=== PATIENT | female | born 1955 | race Caucasian/White ===

== ENCOUNTER → 2020-12-28 | Day surgery (SDC) | payer OTHER ==
[~2020-12-28] VITALS: Ht 165.1 cm; Wt 188.0 kg
[~2020-12-28] MED LIST: CEFD300C PO; LEVO5TAB29 PO; LEVO75TA67 PO; LIDOCAINE 1%/EPI 1:100,000 20 ML VIAL. INJ ONE
[2020-12-28 13:04] VITALS: BP 139/77
--- NOTE | 2020-12-28 13:53 | PDOC4 ---
Operative Note Operative Note Date: 2020-12-28 at 1351 Preoperative diagnosis: Left abdominal wall mass Postoperative diagnosis: Same Procedure: Excision of mass Surgeon: Austen Specimen: Abdominal wall mass Dictation: Patient is 65-year-old female developed inflamed mass in her left abdomen close to where she had previously had a sebaceous cyst excised. Procedure of excision was explained to the patient detail risk benefits were also discussed including bleeding infection alternatives to this procedure also discussed with the patient who seemed to understand and gave a verbal written consent to have procedure performed. Patient was taken to the minors room placed in the supine position area of interest was prepped and draped usual sterile fashion using ChloraPrep. Area around the mass was injected with 1% lidocaine with epinephrine elliptical incision was made with 15 blade scalpel is carried down through the subcutaneous tissue excising the mass circumferentially. Margins of 2 cm. Mass was sent for pathology the wound was closed in a single layer 4-0 subcuticular Monocryl Mastisol Steri-Strips and island dressing was applied. Patient tolerated procedure well was discharged home in stable condition all sponge instrument needle counts listed as correct estimated blood loss 5 mL ZACHARY FELIPE MD Dec 28, 2020 13:53
--- NOTE | 2020-12-28 13:55 | DISCH ---
DISCHARGE INSTRUCTIONS Condition on Discharge Condition on Discharge: Stable Activity After Discharge Activity Instructions for Disc: Activity as tolerated Diet after Discharge Diet after Discharge: Regular Wound Incision Care Other wound/incision instructi: May shower in 24 hours Contacting the DRNolberto after DC Call your doctor for: If your condition worsens Follow-Up Follow up with: Dr. Felipe in 2 weeks ZACHARY FELIPE MD Dec 28, 2020 13:55
--- NOTE | 2020-12-30 17:23 | PATHOLOGY ---
[facility] Accession Number: [id number] . 01 Material submitted: . abdomen - LEFT ABDOMEN MASS. Modifiers: left . 01 Clinical history: . LEFT ABDOMEN MASS EXC. CYST LEFT ABDOMEN . 02 Diagnosis: Skin and subcutaneous tissue, left abdomen mass excision: - Epidermal inclusion cyst, focally ruptured, with acute and chronic inflammation and focal foreign body giant cell reaction. (JPM:[facility]; 12/30/2020) [facility] 12/30/2020 1544 Local . 02 Comment: There is no evidence of malignancy. (JP:[facility]; 12/30/2020) . 02 Electronically signed: . Jaciel Ross MD, Pathologist NPI- [id number] . 01 Gross description: . The specimen is received in formalin, labeled "Court Kaden, left abdomen mass". Received is an ellipse of pale moscoso, grossly unremarkable skin with attached underlying soft tissue measuring 4.3 x 1.3 x 1.4 cm in greatest dimensions. Sectioning reveals a unilocular cystic structure measuring 1.1 cm filled with pale-moscoso friable material. The specimen is submitted representatively in cassette A1. ([facility]; 12/29/2020) QA/QAC 12/29/2020 1804 Local . 02 Pathologist provided ICD-10: L72.0, L98.9 . 02 CPT . 135580 Specimen Comment: A courtesy copy of this report has been sent to [phone], [phone] Specimen Comment: [id number] Specimen Comment: Report sent to / DR HERRERA Performed at: [address], [place], [place] [id number] MD Redd Dunaway MD Phone: [phone] Performed at: 02 [facility] [address] [place], [place] [id number] MD Jaciel Ross MD Phone: [phone]
== END | disposition home or self-care (01) ==
LOC: SURG 12:37
PROVIDERS: ATTEND Surgery
DX: L72.0 Epidermal cyst (principal); L98.9 Disorder of the skin and subcutaneous tissue, unspecified; M19.90 Unspecified osteoarthritis, unspecified site; Z87.891 Personal history of nicotine dependence; Z90.49 Acquired absence of other specified parts of digestive tract; Z98.890 Other specified postprocedural states; Z79.899 Other long term (current) drug therapy
CPT/HCPCS: 11404; 88304; J3490

== ENCOUNTER → 2021-02-15 | Outpatient (CLI) | payer OTHER ==
[2020-12-28 13:04] VITALS: BP 139/77
[~2021-02-15] MED LIST changes: -LIDOCAINE 1%/EPI 1:100,000 20 ML VIAL. INJ ONE
--- NOTE | 2021-02-15 18:03 | CARD ---
MR#: [id number] Date of Study: 02/15/2021 Ordering Physician: DANITA CARRASCO, Referring Physician: DANITA CARRASCO, Tech: Becka King, [facility] APPROVED REPORT EXAM: Two-dimensional and M-mode echocardiogram with Doppler and color Doppler. Other Information Quality : AverageHR: 73bpm INDICATION Dyspnea 2D DIMENSIONS RVDd3.0 (2.9-3.5cm)Left Atrium(2D)3.3 (1.6-4.0cm) IVSd0.8 (0.7-1.1cm)Aortic Root(2D)3.0 (2.0-3.7cm) LVDd4.9 (3.9-5.9cm)LVOT Diameter2.0 (1.8-2.4cm) PWd0.9 (0.7-1.1cm)LVDs2.9 (2.5-4.0cm) FS (%) 41.1 %SV79.8 ml Aortic Valve AoV Peak Herberth.96.5cm/sAoV VTI20.4cm AO Peak GR.3.7mmHgLVOT Peak Herberth.94.1cm/s LVOT VTI 20.05cmAO Mean GR.2mmHg MITZI (VMAX)2.60pf1QDY (VTI)3.06cm2 Mitral Valve MV E Ovnrrstn10.6cm/sMV DECEL [id number] MV A Vijlckvw85.1cm/sMV HAY36th E/A Ratio1.3MVA (PHT)3.56cm2 TDI E/Lateral E'6.7E/Medial E'9.4 Pulmonary Valve PV Peak Mwxnwjmp73.8cm/sPV Peak Grad.2mmHg Tricuspid Valve TR P. [id number]/sTR Peak Gr.24mmHg Pulmonary Vein S1 Fxchnelh89.9cm/sD2 Grtpfaft13.8cm/s PVa [id number] LEFT VENTRICLE The left ventricle is normal size. There is normal left ventricular wall thickness. The left ventricu lar systolic function is normal and the ejection fraction is within normal range. The Ejection Fracti on is 55-60%. There is normal LV segmental wall motion. The left ventricular diastolic function and f illing is normal for age. RIGHT VENTRICLE The right ventricle is normal size. There is normal right ventricular wall thickness. The right ventr icular systolic function is normal. ATRIA The left atrium size is normal. The right atrium size is normal. The interatrial septum is intact wit h no evidence for an atrial septal defect or patent foramen ovale as noted on 2-D or Doppler imaging. AORTIC VALVE The aortic valve is normal in structure and function. Doppler and Color Flow revealed no significant aortic regurgitation. There is no significant aortic valvular stenosis. Calculated aortic valve area is 2.75 cm2 with maximum pressure gradient of 5 mmHg and mean pressure gradient of 3 mmHg. MITRAL VALVE The mitral valve is normal in structure and function. There is no evidence of mitral valve prolapse. There is no mitral valve stenosis. Doppler and Color-flow revealed trace mitral regurgitation. TRICUSPID VALVE The tricuspid valve is normal in structure and function. Doppler and Color Flow revealed trace tricus pid regurgitation with an estimated PAP of 31 mmHg. There is no tricuspid valve stenosis. PULMONIC VALVE The pulmonary valve is normal in structure and function. Doppler and Color Flow revealed trace pulmon ic valvular regurgitation. GREAT VESSELS The aortic root is normal in size. The ascending aorta is normal in size. The IVC is normal in size a nd collapses >50% with inspiration. PERICARDIAL EFFUSION There is no evidence of significant pericardial effusion. Critical Notification Critical Value: No <Conclusion> The left ventricle is normal size. The left ventricular systolic function is normal and the ejection fraction is within normal range. The Ejection Fraction is 55-60%. There is normal LV segmental wall motion. Doppler and Color Flow revealed no significant aortic regurgitation. There is no significant aortic valvular stenosis. Doppler and Color-flow revealed trace mitral regurgitation. Doppler and Color Flow revealed trace tricuspid regurgitation with an estimated PAP of 31 mmHg. Signed by : Matt Coker MD Electronically Approved : 02/15/2021 18:03:11
== END ==
LOC: ECHO 08:19
PROVIDERS: ATTEND Internal Medicine Pulmonary Disease
DX: R06.09 Other forms of dyspnea (principal)
CPT/HCPCS: 93306